=== PATIENT | female | born 1945 | race Caucasian/White ===

== ENCOUNTER 2017-05-06 18:38 | Emergency (ER) | payer OTHER ==
--- NOTE | 2017-05-06 19:00 | CPEKG ---
Heart Rate: 81 RR Interval: 741 P-R Interval: 160 QRSD Interval: 76 QT Interval: 380 QTC Interval: 441 P Hartly: 59 QRS Hartly: 19 T Wave Hartly: 37 EKG Severity - NORMAL ECG - EKG Impression: SINUS RHYTHM Electronically Signed By: Kj Mccall 06-May-2017 19:32:07
[2017-05-06] MEDS ORDERED: METOCLOPRAMIDE 10 MG/2 ML VIAL IVP ONE (19:18)
[2017-05-06 19:22] LABS: % IMMATURE GRANULYOCYTES 0.3 % (0.0-1.1); ABSOLUTE IMMATURE GRANULOCYTES 0.02 10^3/uL (0.00-0.10); ADD DIFF? NO; ADD MORPH? NO; ADD SCAN? NO; ATYPICAL LYMPHOCYTE FLAG 0 (0-99); FRAGMENT RBC FLAG 0 (0-99); HEMOGLOBIN 14.9 g/dL (12.6-16.3); LEFT SHIFT FLG 0 (0-99); LIPEMIA HEMOLYSIS FLAG 90 (0-99); MEAN CELL HEMOGLOBIN 31.4 pg (27.9-34.1); MEAN CELL HEMOGLOBIN CONCENTR. 34.7 g/dL (32.4-36.7); MEAN CELL VOLUME 90.5 fL (81.5-99.8); PLATELET CLUMPS FLAG 0 (0-99); PLATELET COUNT 277 10^3/uL (150-400); RED BLOOD CELL COUNT 4.75 10^6/uL (4.18-5.33); RED CELL DISTRIBUTION WIDTH 12.2 % (11.5-15.2)
[2017-05-06 19:27] LABS: ANION GAP 11 mEq/L (8-16); CALCIUM 9.5 mg/dL (8.5-10.4); CARBON DIOXIDE 25 mEq/l (22-31); CHLORIDE 101 mEq/L (97-110); CREATININE 0.8 mg/dL (0.6-1.0); GLOMERULAR FILTRATION RATE > 60; GLUCOSE 84 mg/dL (70-100); SODIUM 137 mEq/L (134-144)
[2017-05-06 19:31] LABS: PROTIME(PATIENT) 13.1 SEC (12.0-15.0)
--- NOTE | 2017-05-06 19:31 | EDPHY ---
H & P Stated Complaint: Palpatations, dizziness Time Seen by Provider: 05/06/17 19:06 HPI/ROS: CHIEF COMPLAINT: Palpitations, lightheadedness headache HISTORY OF PRESENT ILLNESS: The patient is a 71-year-old female who comes to the emergency department complaining of palpitations that began around 2 o' clock this afternoon. She describes them as a thumping feeling in her chest. She states her heart beat was not fast. She has had these before with no obvious cause. What concerned her today was that after today's episode she felt slightly lightheaded and now has developed a headache. She denies ever having any chest pain or shortness of breath. The palpitations only lasted for a few seconds. She does have a history of migraines and states that this feels somewhat similar but it is hard to tell. His no fevers. No trauma. REVIEW OF SYSTEMS: Constitutional: denies: chills, fever, recent illness, recent injury EENTM: denies: blurred vision, double vision, nose congestion Respiratory: denies: cough, shortness of breath Cardiac: denies: chest pain, irregular heart rate, lightheadedness, palpitations Gastrointestinal/Abdominal: denies: abdominal pain, diarrhea, nausea, vomiting, blood streaked stools Genitourinary: denies: dysuria, frequency, hematuria, pain Musculoskeletal: denies: joint pain, muscle pain Skin: denies: lesions, rash, jaundice, bruising Neurological: See HPI no focal weakness numbness or deficits. Hematologic/Lymphatic: denies: blood clots, easy bleeding, easy bruising Immunologic/allergic: denies: HIV/AIDS, transplant EXAM: GENERAL: Well-appearing, well-nourished and in no acute distress. HEAD: Atraumatic, normocephalic. EYES: Pupils equal round and reactive to light, extraocular movements intact, sclera anicteric, conjunctiva are normal. ENT: TMs normal, nares patent, oropharynx clear without exudates. Moist mucous membranes. NECK: Normal range of motion, supple without lymphadenopathy or JVD. LUNGS: Breath sounds clear to auscultation bilaterally and equal. No wheezes rales or rhonchi. HEART: Regular rate and rhythm without murmurs, rubs or gallops. ABDOMEN: Soft, nontender, normoactive bowel sounds. No guarding, no rebound. No masses appreciated. BACK: No CVA tenderness, no spinal tenderness, step-offs or deformities EXTREMITIES: Normal range of motion, no pitting or edema. No clubbing or cyanosis. NEUROLOGICAL: Cranial nerves II through XII grossly intact. Normal speech, normal gait. 5/5 strength, normal movement in all extremities, normal sensation PSYCH: Normal mood, normal affect. SKIN: Warm, dry, normal turgor, no visible rashes or lesions. Source: Patient Exam Limitations: No limitations - Personal History Current Tetanus/Diphtheria Vaccine: Yes Current Tetanus Diphtheria and Acellular Pertussis (TDAP): Yes - Medical/Surgical History Hx Asthma: No Hx Chronic Respiratory Disease: No Hx Diabetes: No Hx Cardiac Disease: No Hx Renal Disease: No Hx Cirrhosis: No Hx Alcoholism: No Hx HIV/AIDS: No Hx Splenectomy or Spleen Trauma: No Other PMH: Denies - Family History Significant Family History: No pertinent family hx - Social History Smoking Status: Never smoked Alcohol Use: Sober Drug Use: None Constitutional: Initial Vital Signs Temperature (C) 37.2 C 05/06/17 18:46 Heart Rate 86 05/06/17 18:46 Respiratory Rate 15 05/06/17 18:46 Blood Pressure 145/73 H 05/06/17 18:46 O2 Sat (%) 97 05/06/17 18:46 O2 Delivery Mode Room Air Allergies/Adverse Reactions: acetaminophen [From Percocet] Allergy (Verified 05/29/15 17:53) erythromycin base Allergy (Verified 05/29/15 17:52) oxycodone HCl [From Percocet] Allergy (Verified 05/29/15 17:53) Home Medications: Medication Instructions Recorded PRILOSEC 05/06/17 Medical Decision Making - Diagnostics EKG Interpretation: An EKG obtained and was read and documented in trace view. Please see trace view for full reading and report. Sinus rhythm, no acute ischemic changes Imaging: Discussed imaging studies w/ thrasher feeder Radiologist ED Course/Re-evaluation: 8:50 p.m. we discussed the test results. They are reassuring especially considering the duration the patient's symptoms. She does not have chest pain per se. She did have an episode of palpitations here in the emergency department. They were seen on the monitor as PACs in a bigeminy type pattern. She did not feel lightheaded. Her vital signs remained stable. We discussed options including starting her on low-dose beta-talia. This time she declined. 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 We discussed indications for returning.. Head CT ordered in this adult patient for trauma for the following indication: Severe headache, age greater than 70 Differential Diagnosis: Partial list of the Differential diagnosis considered include but were not limited to; PA-C, PVC, AFib, SVT and although unlikely based on the history and physical exam, I also considered dissection, subarachnoid, infection, acute coronary disease. I discussed these differential diagnoses and the plan with the patient as well as the usual and expected course. The patient understands that the diagnosis is provisional and that in medicine we are not always correct and that further workup is often warranted. Usual and customary warnings were given. All of the patient's questions were answered. The patient was instructed to return to the emergency department should the symptoms at all worsen or return, otherwise to followup with the physician as we discussed. - Data Points Laboratory Results: Laboratory Results 05/06/17 18:55 05/06/17 18:55 Medications Given: Discontinued Medications Metoclopramide HCl (Reglan Injection) 10 mg IVP EDNOW ONE Stop: 05/06/17 19:19 Last Admin: 05/06/17 19:42 Dose: Not Given Departure - Departure Disposition: Home, Routine, Self-Care Clinical Impression: Premature atrial contractions Condition: Fair Instructions: Premature Atrial Contractions (ED) Referrals: Keri Peña MD [Primary Care Provider] - As per Instructions Eriberto Villalba MD [Medical Doctor] - As per Instructions
[2017-05-06 19:32] LABS: APTT 27.6 SEC (23.0-38.0)
[2017-05-06 19:40] LABS: TROPONIN I < 0.012 ng/mL (0.000-0.034)
[2017-05-06 21:07] VITALS: BP 148/74; PULSE 83; RESP 14; TEMP 98.6; O2SAT 97
== END 2017-05-06 21:14 | disposition home or self-care (01) ==
DX: I49.1 Atrial premature depolarization (principal)
CPT/HCPCS: 70450; 71020; 93005; 99285; J2765

== ENCOUNTER → 2017-06-02 | Outpatient (CLI) | payer OTHER | LOC: BHFA 11:00 | PROVIDERS: ATTEND Internal Medicine Cardiovascular Disease | DX: R00.2 Palpitations (principal) ==

== ENCOUNTER → 2017-06-12 | Outpatient (CLI) | payer OTHER | LOC: FIMAGING 10:54 | PROVIDERS: ATTEND Surgery | DX: Z12.31 Encounter for screening mammogram for malignant neoplasm of breast (principal); Z80.3 Family history of malignant neoplasm of breast | CPT/HCPCS: G0202 ==

== ENCOUNTER → 2017-06-19 | Outpatient (CLI) | payer OTHER | LOC: FIMAGING 15:44 | PROVIDERS: ATTEND Family Medicine | DX: R92.8 Other abnormal and inconclusive findings on diagnostic imaging of breast (principal) ==

== ENCOUNTER → 2017-08-19 | Outpatient (CLI) | payer OTHER | LOC: FIMAGING 14:02 | PROVIDERS: ATTEND Family Medicine | DX: Z13.820 Encounter for screening for osteoporosis (principal); M81.0 Age-related osteoporosis without current pathological fracture ==

== ENCOUNTER → 2018-08-01 | Outpatient (CLI) | payer OTHER | LOC: FIMAGING 08:46 | PROVIDERS: ATTEND Family Medicine | DX: Z12.31 Encounter for screening mammogram for malignant neoplasm of breast (principal); Z80.3 Family history of malignant neoplasm of breast ==

== ENCOUNTER → 2018-08-12 | Outpatient (CLI) | payer OTHER | LOC: FIMAGING 14:51 | PROVIDERS: ATTEND Family Medicine | DX: N63.20 Unspecified lump in the left breast, unspecified quadrant (principal); R92.8 Other abnormal and inconclusive findings on diagnostic imaging of breast ==